=== PATIENT | male | born 1930 | race Caucasian/White ===

== ENCOUNTER 2016-04-23 09:40 | Outpatient (CLI) ==
[2016-04-23 10:49] LABS: PROTHROMBIN TIME 10.1 SEC (9.3-11.0)
== END 2016-04-23 09:41 | disposition home or self-care (01) ==
LOC: LAB 09:40
PROVIDERS: ATTEND Internal Medicine Interventional Cardiology
DX: Z51.81 Encounter for therapeutic drug level monitoring (principal); Z79.01 Long term (current) use of anticoagulants; I48.0 Paroxysmal atrial fibrillation
CPT/HCPCS: 36415; 85610

== ENCOUNTER 2016-05-01 08:01 | Outpatient (CLI) | payer OTHER ==
[2016-05-01 08:46] LABS: PROTHROMBIN TIME 13.6 SEC (9.3-11.0)
== END 2016-05-01 08:02 | disposition home or self-care (01) ==
LOC: LAB 08:01
PROVIDERS: ATTEND Internal Medicine Interventional Cardiology
DX: Z51.81 Encounter for therapeutic drug level monitoring (principal); Z79.01 Long term (current) use of anticoagulants; I48.0 Paroxysmal atrial fibrillation
CPT/HCPCS: 36415; 85610

== ENCOUNTER 2016-05-08 07:54 | Outpatient (CLI) ==
[2016-05-08 08:31] LABS: PROTHROMBIN TIME 18.5 SEC (9.3-11.0)
== END 2016-05-08 07:55 | disposition home or self-care (01) ==
LOC: LAB 07:54
PROVIDERS: ATTEND Internal Medicine Interventional Cardiology
DX: Z51.81 Encounter for therapeutic drug level monitoring (principal); Z79.01 Long term (current) use of anticoagulants; I48.0 Paroxysmal atrial fibrillation
CPT/HCPCS: 36415; 85610

== ENCOUNTER 2016-05-22 08:12 | Outpatient (CLI) | payer OTHER ==
[2016-05-22 09:27] LABS: PROTHROMBIN TIME 22.7 SEC (9.3-11.0)
== END 2016-05-22 08:13 | disposition home or self-care (01) ==
LOC: LAB 08:12
PROVIDERS: ATTEND Internal Medicine Interventional Cardiology
DX: Z51.81 Encounter for therapeutic drug level monitoring (principal); Z79.01 Long term (current) use of anticoagulants; I48.0 Paroxysmal atrial fibrillation
CPT/HCPCS: 36415; 85610

== ENCOUNTER 2016-06-05 08:02 | Outpatient (CLI) ==
[2016-06-05 09:01] LABS: PROTHROMBIN TIME 21.4 SEC (9.3-11.0)
== END 2016-06-05 08:03 | disposition home or self-care (01) ==
LOC: LAB 08:02
PROVIDERS: ATTEND Internal Medicine Interventional Cardiology
DX: Z51.81 Encounter for therapeutic drug level monitoring (principal); Z79.01 Long term (current) use of anticoagulants; I48.0 Paroxysmal atrial fibrillation
CPT/HCPCS: 36415; 85610

== ENCOUNTER 2016-07-06 08:06 | Outpatient (CLI) ==
[2016-07-06 08:42] LABS: PROTHROMBIN TIME 21.7 SEC (9.3-11.0)
== END 2016-07-06 08:07 | disposition home or self-care (01) ==
LOC: LAB 08:06
PROVIDERS: ATTEND Internal Medicine Interventional Cardiology
DX: Z51.81 Encounter for therapeutic drug level monitoring (principal); Z79.01 Long term (current) use of anticoagulants; I48.0 Paroxysmal atrial fibrillation
CPT/HCPCS: 36415; 85610

== ENCOUNTER 2016-07-07 08:54 | Outpatient (CLI) ==
[2016-07-07 09:45] LABS: BILIRUBIN,URINE Negative (NEGATIVE); KETONES,URINE Negative (NEGATIVE); LEUKOCYTE ESTERASE ,URINE Negative (NEGATIVE); NITRITE,URINE Negative (NEGATIVE); PROTEIN,URINE Negative (NEGATIVE); URINE, BLOOD Negative (NEGATIVE)
[2016-07-07 09:47] LABS: BASOPHILS % (AUTO) 0.3 % (0.0-3.0); EOSINOPHILS # (AUTO) 0.1 K/ul (0.0-0.7); EOSINOPHILS % (AUTO) 1.3 % (0.0-7.0); HEMATOCRIT 42.8 % (42.0-52.0); HEMOGLOBIN 14.2 g/dl (14.0-18.0); IMMATURE GRANULOCYTE % (AUTO) 0.3 % (0.0-5.0); LYMPHOCYTES # (AUTO) 1.7 K/uL (0.60-3.4); LYMPHOCYTES % (AUTO) 43.6 (10.0-50.0); MEAN CORPUSCULAR HEMOGLOBIN 30.3 pg (27.0-31.0); MEAN CORPUSCULAR HGB CONC 33.2 (31.8-35.4); MEAN CORPUSCULAR VOLUME 91.5 fl (80.0-94.0); MONOCYTES # (AUTO) 0.3 K/uL (0.4-2.0); MONOCYTES % (AUTO) 8.1 (0-10); NEUTROPHILS # (AUTO) 1.9 K/ul (2.0-6.9); NEUTROPHILS % (AUTO) 46.4; PLATELET COUNT 127 10^3/uL (140-440); RED BLOOD COUNT 4.68 10^6/ul (4.70-6.10); WHITE BLOOD COUNT 3.97 K/ul (4.2-10.2)
[2016-07-07 09:49] LABS: ADD URINE MICROSCOPIC NO
[2016-07-07 09:55] LABS: ALBUMIN 3.7 g/dL (3.4-5.0); ALBUMIN/GLOBULIN RATIO 0.86; ANION GAP 14.3; BILIRUBIN,TOTAL 0.64 mg/dL (0.00-1.20); BUN/CREATININE RATIO 21.89; CALCIUM 9.3 mg/dL (8.2-10.2); CHOL/HDL RATIO 4.6 (4.5-6.4); CREATININE 1.37 mg/dL (0.60-1.10); POTASSIUM 4.3 mmol/L (3.5-5.1)
== END 2016-07-07 08:55 | disposition home or self-care (01) ==
LOC: LAB 08:54
PROVIDERS: ATTEND General Practice
DX: I25.10 Atherosclerotic heart disease of native coronary artery without angina pectoris (principal); E53.8 Deficiency of other specified B group vitamins; E78.5 Hyperlipidemia, unspecified; I10 Essential (primary) hypertension; R53.1 Weakness; R05 Cough; R06.89 Other abnormalities of breathing; Z79.899 Other long term (current) drug therapy
CPT/HCPCS: 36415; 80053; 80061; 81001; 84145; 85025; 86710

== ENCOUNTER 2016-07-07 11:06 | Outpatient (CLI) ==
--- NOTE | 2016-07-07 11:45 | CT ---
EXAM: CT chest without contrast HISTORY: Cough and weakness for 1 week COMPARISON: Chest x-ray 05/27/2007 and 06/21/2006 TECHNIQUE: Serial axial images of the chest were obtained from the lung apices to the upper abdomen without contrast. These were viewed in multiple planes. FINDINGS: The thyroid is normal. The visualized vessels demonstrates scattered atherosclerotic dis ease. The aorta valve is mechanical. There are lead wires with tips terminating in the right atriu m right ventricle. The heart is normal in size without pericardial effusion. There are no patholog ically enlarged mediastinal or hilar lymph nodes. There is no pneumothorax. There is a small left effusion. There is calcified granuloma adjacent to the right major fissure on image 36. There are few calcified pleural plaques bilaterally. There ar e calcified pleural plaques along the left hemidiaphragm. There is no acute consolidation, nodule or mass. The soft tissues in the upper abdomen are unremarkable. There is moderate atherosclerotic disease. IMPRESSION: 1. Small left effusion with left greater than right calcified pleural plaques. 2. No acute consolidation, nodule or mass. 3. 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
== END 2016-07-07 11:07 | disposition home or self-care (01) ==
LOC: RAD 11:06
PROVIDERS: ATTEND General Practice
DX: R53.1 Weakness (principal); R05 Cough; R06.89 Other abnormalities of breathing

== ENCOUNTER 2016-08-03 08:22 | Outpatient (CLI) ==
[2016-08-03 09:02] LABS: PROTHROMBIN TIME 19.4 SEC (9.3-11.0)
== END 2016-08-03 08:23 | disposition home or self-care (01) ==
LOC: LAB 08:22
PROVIDERS: ATTEND Internal Medicine Interventional Cardiology
DX: Z51.81 Encounter for therapeutic drug level monitoring (principal); Z79.01 Long term (current) use of anticoagulants; I48.0 Paroxysmal atrial fibrillation
CPT/HCPCS: 36415; 85610

== ENCOUNTER 2016-08-17 08:16 | Outpatient (CLI) | END 2016-08-17 08:17 | disposition home or self-care (01) | LOC: LAB 08:16 | PROVIDERS: ATTEND Internal Medicine Interventional Cardiology | DX: Z51.81 Encounter for therapeutic drug level monitoring (principal); Z79.01 Long term (current) use of anticoagulants; I48.0 Paroxysmal atrial fibrillation | CPT/HCPCS: 36415; 85610 ==

== ENCOUNTER 2016-09-07 08:13 | Outpatient (CLI) ==
[2016-09-07 08:43] LABS: PROTHROMBIN TIME 29.3 SEC (9.3-11.0)
== END 2016-09-07 08:14 ==
LOC: LAB 08:13
PROVIDERS: ATTEND Internal Medicine Interventional Cardiology
DX: I48.0 Paroxysmal atrial fibrillation (principal); Z51.81 Encounter for therapeutic drug level monitoring; Z79.01 Long term (current) use of anticoagulants
CPT/HCPCS: 36415; 85610

== ENCOUNTER 2016-09-21 08:01 | Outpatient (CLI) ==
[2016-09-21 09:09] LABS: PROTHROMBIN TIME 28.7 SEC (9.3-11.0)
== END 2016-09-21 08:02 | disposition home or self-care (01) ==
LOC: LAB 08:01
PROVIDERS: ATTEND Internal Medicine Interventional Cardiology
DX: Z51.81 Encounter for therapeutic drug level monitoring (principal); Z79.01 Long term (current) use of anticoagulants; I48.0 Paroxysmal atrial fibrillation
CPT/HCPCS: 36415; 85610

== ENCOUNTER 2016-10-19 08:22 | Outpatient (CLI) | END 2016-10-19 08:23 | disposition home or self-care (01) | LOC: LAB 08:22 | PROVIDERS: ATTEND Internal Medicine Interventional Cardiology | DX: Z51.81 Encounter for therapeutic drug level monitoring (principal); Z79.01 Long term (current) use of anticoagulants; I48.0 Paroxysmal atrial fibrillation | CPT/HCPCS: 36415; 85610 ==

== ENCOUNTER 2016-11-17 08:21 | Outpatient (CLI) ==
[2016-11-17 10:56] LABS: PROTHROMBIN TIME 33.4 SEC (9.3-11.0)
== END 2016-11-17 08:22 | disposition home or self-care (01) ==
LOC: LAB 08:21
PROVIDERS: ATTEND Internal Medicine Interventional Cardiology
DX: Z51.81 Encounter for therapeutic drug level monitoring (principal); Z79.01 Long term (current) use of anticoagulants; I48.0 Paroxysmal atrial fibrillation
CPT/HCPCS: 36415; 85610

== ENCOUNTER 2016-11-24 08:12 | Outpatient (CLI) ==
[2016-11-24 09:13] LABS: PROTHROMBIN TIME 36.3 SEC (9.3-11.0)
== END 2016-11-24 08:13 | disposition home or self-care (01) ==
LOC: LAB 08:12
PROVIDERS: ATTEND Internal Medicine Interventional Cardiology
DX: Z51.81 Encounter for therapeutic drug level monitoring (principal); Z79.01 Long term (current) use of anticoagulants; I48.0 Paroxysmal atrial fibrillation
CPT/HCPCS: 36415; 85610

== ENCOUNTER 2016-11-30 08:06 | Outpatient (CLI) ==
[2016-11-30 09:09] LABS: PROTHROMBIN TIME 25.7 SEC (9.3-11.0)
== END 2016-11-30 08:07 | disposition home or self-care (01) ==
LOC: LAB 08:06
PROVIDERS: ATTEND Internal Medicine Interventional Cardiology
DX: Z51.81 Encounter for therapeutic drug level monitoring (principal); Z79.01 Long term (current) use of anticoagulants; I48.0 Paroxysmal atrial fibrillation
CPT/HCPCS: 36415; 85610

== ENCOUNTER 2016-12-21 08:01 | Outpatient (CLI) ==
[2016-12-21 08:41] LABS: PROTHROMBIN TIME 29.2 SEC (9.3-11.0)
== END 2016-12-21 08:02 | disposition home or self-care (01) ==
LOC: LAB 08:01
PROVIDERS: ATTEND Internal Medicine Interventional Cardiology
DX: Z51.81 Encounter for therapeutic drug level monitoring (principal); Z79.01 Long term (current) use of anticoagulants; I48.0 Paroxysmal atrial fibrillation
CPT/HCPCS: 36415; 85610

== ENCOUNTER 2017-01-13 07:09 | Outpatient (CLI) | payer OTHER ==
[2017-01-13 07:33] LABS: BASOPHILS % (AUTO) 0.3 % (0.0-3.0); EOSINOPHILS # (AUTO) 0.2 K/ul (0.0-0.7); EOSINOPHILS % (AUTO) 2.7 % (0.0-7.0); HEMATOCRIT 34.6 % (42.0-52.0); HEMOGLOBIN 11.2 g/dl (14.0-18.0); IMMATURE GRANULOCYTE % (AUTO) 0.4 % (0.0-5.0); LYMPHOCYTES # (AUTO) 1.3 K/uL (0.60-3.4); LYMPHOCYTES % (AUTO) 18.2 (10.0-50.0); MEAN CORPUSCULAR HEMOGLOBIN 28.1 pg (27.0-31.0); MEAN CORPUSCULAR HGB CONC 32.4 (31.8-35.4); MEAN CORPUSCULAR VOLUME 86.9 fl (80.0-94.0); MONOCYTES # (AUTO) 0.6 K/uL (0.4-2.0); MONOCYTES % (AUTO) 8.5 (0-10); NEUTROPHILS # (AUTO) 5.1 K/ul (2.0-6.9); NEUTROPHILS % (AUTO) 69.9; PLATELET COUNT 194 10^3/uL (140-440); RED BLOOD COUNT 3.98 10^6/ul (4.70-6.10); WHITE BLOOD COUNT 7.32 K/ul (4.2-10.2)
[2017-01-13 07:40] LABS: ADD URINE MICROSCOPIC NO; BILIRUBIN,URINE Negative (NEGATIVE); KETONES,URINE Negative (NEGATIVE); LEUKOCYTE ESTERASE ,URINE Negative (NEGATIVE); NITRITE,URINE Negative (NEGATIVE); PROTEIN,URINE Negative (NEGATIVE); URINE, BLOOD Negative (NEGATIVE)
[2017-01-13 08:08] LABS: ALBUMIN 2.8 g/dL (3.4-5.0); ALBUMIN/GLOBULIN RATIO 0.67; ANION GAP 16.3; BILIRUBIN,TOTAL 0.9 mg/dL (0.00-1.20); BUN/CREATININE RATIO 17.64; CALCIUM 9.8 mg/dL (8.2-10.2); CHOL/HDL RATIO 3.6 (4.5-6.4); CREATININE 1.02 mg/dL (0.60-1.10); POTASSIUM 4.3 mmol/L (3.5-5.1)
== END 2017-01-13 07:10 | disposition home or self-care (01) ==
LOC: LAB 07:09
PROVIDERS: ATTEND Internal Medicine Interventional Cardiology
DX: Z51.81 Encounter for therapeutic drug level monitoring (principal); Z79.01 Long term (current) use of anticoagulants; I48.0 Paroxysmal atrial fibrillation; I49.9 Cardiac arrhythmia, unspecified; I10 Essential (primary) hypertension; E53.8 Deficiency of other specified B group vitamins; I25.10 Atherosclerotic heart disease of native coronary artery without angina pectoris; E78.5 Hyperlipidemia, unspecified; Z12.5 Encounter for screening for malignant neoplasm of prostate; Z79.899 Other long term (current) drug therapy
CPT/HCPCS: 36415; 80053; 80061; 81001; 85025; 85610; 93005; 93010

== ENCOUNTER 2017-02-23 08:02 | Outpatient (CLI) ==
[2017-02-23 09:13] LABS: PROTHROMBIN TIME 32.5 SEC (9.3-11.0)
== END 2017-02-23 08:03 | disposition home or self-care (01) ==
LOC: LAB 08:02
PROVIDERS: ATTEND Internal Medicine Interventional Cardiology
DX: Z51.81 Encounter for therapeutic drug level monitoring (principal); Z79.01 Long term (current) use of anticoagulants; I48.91 Unspecified atrial fibrillation
CPT/HCPCS: 36415; 85610

== ENCOUNTER 2017-03-11 08:03 | Outpatient (CLI) ==
[2017-03-11 09:15] LABS: PROTHROMBIN TIME 34.4 SEC (9.3-11.0)
== END 2017-03-11 08:04 | disposition home or self-care (01) ==
LOC: LAB 08:03
PROVIDERS: ATTEND Internal Medicine Interventional Cardiology
DX: Z51.81 Encounter for therapeutic drug level monitoring (principal); Z79.01 Long term (current) use of anticoagulants; I48.91 Unspecified atrial fibrillation
CPT/HCPCS: 36415; 85610

== ENCOUNTER 2017-04-12 16:26 | Outpatient (CLI) | END 2017-04-12 16:27 | disposition home or self-care (01) | LOC: LAB 16:26 | PROVIDERS: ATTEND General Practice | DX: D50.9 Iron deficiency anemia, unspecified (principal); E53.8 Deficiency of other specified B group vitamins; I10 Essential (primary) hypertension | CPT/HCPCS: 36415; 82272; 85025 ==

== ENCOUNTER 2017-04-12 16:52 | Outpatient (CLI) ==
--- NOTE | 2017-04-12 17:25 | CT ---
EXAM: CT scan of the abdomen and pelvis without contrast HISTORY: Weight loss TECHNIQUE: Imaging of the abdomen pelvis was performed without contrast. 5 mm thin axial images and coronal and sagittal reconstructions were provided for interpretation. Comparison CT scan of the chest dated 07/07/2016. FINDINGS: The liver, spleen, pancreas, adrenal glands and kidneys appear normal. The proximal urete rs are normal size. The small and large bowel loops are normal caliber. There is no free air. No a cute abnormalities are seen within the anterior abdominal wall. The appendix appears normal. The helical images obtained through the pelvis demonstrate a normal appearance of the rectum, urinary bladder. There is no free fluid seen within the pelvis. There is diffuse diverticular disease of t he sigmoid colon and descending colon without acute inflammation. There is a small left pleural effu cory. Pleural calcifications are again seen bilaterally. There is a questionable nodular focus seen along the posterior pleura of the left hemidiaphragm seen on axial image number 14. Findings measure approximately 1.7 cm maximum. No lytic or blastic lesions are seen within the osseous structures. IMPRESSION: There is no bowel obstruction or acute inflammatory change seen within the abdomen and p shellie. Calcified pleural plaques are again seen. There is a questionable new focus of soft tissue nodule s een along the posterior pleura of the left hemidiaphragm. A focus of tumor and malignancy cannot be e xcluded. CT scan of the chest with contrast can be obtained for further evaluation. Stable small left pleural effusion. Diverticular disease of the descending and sigmoid colon without acute inflammation.
== END 2017-04-12 16:53 | disposition home or self-care (01) ==
LOC: RAD 16:52
PROVIDERS: ATTEND General Practice
DX: R63.4 Abnormal weight loss (principal)

== ENCOUNTER 2017-04-19 07:07 | Outpatient (CLI) | END 2017-04-19 07:08 | disposition home or self-care (01) | LOC: LAB 07:07 | PROVIDERS: ATTEND Internal Medicine Interventional Cardiology | DX: R77.0 Abnormality of albumin (principal); R63.4 Abnormal weight loss; I10 Essential (primary) hypertension; E78.5 Hyperlipidemia, unspecified; I49.9 Cardiac arrhythmia, unspecified; I25.10 Atherosclerotic heart disease of native coronary artery without angina pectoris; I48.91 Unspecified atrial fibrillation; D49.1 Neoplasm of unspecified behavior of respiratory system; Z79.899 Other long term (current) drug therapy; Z51.81 Encounter for therapeutic drug level monitoring; Z79.01 Long term (current) use of anticoagulants | CPT/HCPCS: 36415; 80053; 81001; 82378; 84439; 84443; 85025; 85610 ==

== ENCOUNTER 2017-04-20 09:45 | Outpatient (CLI) ==
--- NOTE | 2017-04-20 10:44 | CT ---
EXAM: CT of the chest with and without contrast History: Cough. Comparison: Chest CT 07/07/2016 Technique: Multiplanar CT images through the thorax were obtained with and without the administratio n of IV contrast Findings: Heart size is upper limits of normal. Coronary calcifications. The aortic valve replacem ent. No axillary adenopathy. No pathologically enlarged mediastinal or hilar lymph nodes. Atherosc lerotic vascular calcifications of the thoracic aorta. No thoracic aortic aneurysm. No consolidated pneumonia. No pneumothorax. No lung masses or lung nodules. Slight interval increa se in size of the small left pleural effusion. There is a new trace right pleural effusion. No hopson ge in the calcified bilateral pleural plaques. Within the visualized upper abdomen, no acute findings. Colonic diverticulosis. No acute osseous ab normalities. Sternotomy wires. Degenerative changes of the spine. Impression: 1. Slight interval increase in size of the small left pleural effusion. 2. There is a new trace right pleural effusion. 3. No evidence for pneumonia and no lymphadenopathy. No lung masses or lung nodules. 4. No change in the bilateral calcified pleural plaques.
== END 2017-04-20 09:46 ==
LOC: RAD 09:45
PROVIDERS: ATTEND General Practice
DX: D49.1 Neoplasm of unspecified behavior of respiratory system (principal)

== ENCOUNTER 2017-05-19 07:41 | Outpatient (CLI) | payer OTHER | END 2017-05-19 07:42 | disposition home or self-care (01) | LOC: LAB 07:41 | PROVIDERS: ATTEND Internal Medicine Interventional Cardiology | DX: I48.91 Unspecified atrial fibrillation (principal); Z51.81 Encounter for therapeutic drug level monitoring; Z79.01 Long term (current) use of anticoagulants | CPT/HCPCS: 36415; 85610 ==

== ENCOUNTER 2017-06-16 07:16 | Outpatient (CLI) | payer OTHER | END 2017-06-16 07:17 | disposition home or self-care (01) | LOC: LAB 07:16 | PROVIDERS: ATTEND Internal Medicine Interventional Cardiology | DX: Z51.81 Encounter for therapeutic drug level monitoring (principal); Z79.01 Long term (current) use of anticoagulants; I48.91 Unspecified atrial fibrillation | CPT/HCPCS: 36415; 85610 ==

== ENCOUNTER 2017-06-30 07:06 | Outpatient (CLI) | END 2017-06-30 07:07 | disposition home or self-care (01) | LOC: LAB 07:06 | PROVIDERS: ATTEND Internal Medicine Interventional Cardiology | DX: Z51.81 Encounter for therapeutic drug level monitoring (principal); Z79.01 Long term (current) use of anticoagulants; I48.91 Unspecified atrial fibrillation | CPT/HCPCS: 36415; 85610 ==

== ENCOUNTER 2017-07-14 07:01 | Outpatient (CLI) | payer OTHER | END 2017-07-14 07:02 | disposition home or self-care (01) | LOC: LAB 07:01 | PROVIDERS: ATTEND Internal Medicine Interventional Cardiology | DX: I48.91 Unspecified atrial fibrillation (principal) | CPT/HCPCS: 36415; 85610 ==

== ENCOUNTER 2017-08-04 06:58 | Outpatient (CLI) | payer OTHER | END 2017-08-04 06:59 | disposition home or self-care (01) | LOC: LAB 06:58 | PROVIDERS: ATTEND Internal Medicine Interventional Cardiology | DX: Z51.81 Encounter for therapeutic drug level monitoring (principal); Z79.01 Long term (current) use of anticoagulants; I48.91 Unspecified atrial fibrillation | CPT/HCPCS: 36415; 85610 ==

== ENCOUNTER 2017-08-06 07:01 | Outpatient (CLI) | payer OTHER | END 2017-08-06 07:02 | disposition home or self-care (01) | LOC: LAB 07:01 | PROVIDERS: ATTEND Internal Medicine Interventional Cardiology | DX: I48.91 Unspecified atrial fibrillation (principal) | CPT/HCPCS: 36415; 85610 ==

== ENCOUNTER 2017-08-12 11:51 | Outpatient (CLI) | END 2017-08-12 11:52 | disposition home or self-care (01) | LOC: FCC-LAB 11:51 | PROVIDERS: ATTEND General Practice | DX: E78.5 Hyperlipidemia, unspecified (principal); I25.10 Atherosclerotic heart disease of native coronary artery without angina pectoris; I10 Essential (primary) hypertension; I49.9 Cardiac arrhythmia, unspecified; Z79.899 Other long term (current) drug therapy | CPT/HCPCS: 36415; 80053; 80061; 81001; 85025 ==

== ENCOUNTER 2017-08-13 11:44 | Outpatient (CLI) | END 2017-08-13 11:45 | disposition left against medical advice (07) | LOC: AMBL 11:44 | PROVIDERS: ATTEND Internal Medicine | DX: R41.0 Disorientation, unspecified (principal); M25.521 Pain in right elbow; S51.801A Unspecified open wound of right forearm, initial encounter; R29.6 Repeated falls; F03.90 Unspecified dementia, unspecified severity, without behavioral disturbance, psychotic disturbance, mood disturbance, and anxiety; W19.XXXA Unspecified fall, initial encounter ==

== ENCOUNTER 2017-08-17 11:46 | Outpatient (CLI) | payer OTHER ==
--- NOTE | 2017-08-17 16:04 | DI ---
EXAM: Radiographs, right knee HISTORY: Initial presentation for right knee trauma. COMPARISON: None available. TECHNIQUE: Four views. FINDINGS: Bone mineralization is decreased. No fracture or dislocation identified. Moderate medial and patellofemoral compartment joint space narrowing noted. Tricompartmental marginal osteophyte fo rmation present. No erosions are seen. Small superior patellar enthesophyte noted. Prepatellar sof t tissue swelling noted. Atherosclerotic calcifications are present. IMPRESSION: No fracture or dislocation.
== END 2017-08-17 11:47 | disposition home or self-care (01) ==
LOC: RAD 11:46 → FCC-LAB 11:47
PROVIDERS: ATTEND General Practice
DX: R15.9 Full incontinence of feces (principal); R19.5 Other fecal abnormalities; S89.91XA Unspecified injury of right lower leg, initial encounter; S80.01XA Contusion of right knee, initial encounter; M25.561 Pain in right knee; M25.461 Effusion, right knee
CPT/HCPCS: 82272

== ENCOUNTER 2017-08-18 13:16 | Outpatient (CLI) | payer OTHER ==
--- NOTE | 2017-08-18 15:44 | US ---
EXAM: Ultrasound venous Doppler right lower extermity HISTORY: Other specified soft tissue disorders COMPARISON: None TECHNIQUE: Venous duplex ultrasound of the right lower extremity was performed using color, daly-sca le, and Doppler flow imaging. FINDINGS: There is normal color flow and compression of the right common femoral, greater saphenous, profunda femoral, femoral, popliteal, peroneal, posterior tibial, and anterior tibial veins without evidence of intraluminal thrombus. IMPRESSION: No right lower extremity deep venous thrombosis.
--- NOTE | 2017-08-18 15:52 | US ---
Exam: Ritchie-scale and color ultrasonographic evaluation of the carotid arteries. Comparison: None available. Reason for exam: Weakness with balance tissues. Findings: There is a moderate amount of atheromatous plaque seen in the right internal carotid artery The right ECA measures 0.9 meters per second Right CCA measures 1.0 / 0.2 meters per second. The right internal carotid artery peak systolic velocity measures 1.9 meters per second The right internal carotid artery/CCA PSV ratio measures 1.9. The right internal carotid artery end-diastolic velocity measures 0.3 There is normal antegrade right vertebral artery flow. There is a moderate amount of atheromatous plaque seen in the left internal carotid artery Left ECA measures 0.8 meters per second Left CCA measures 0.9 / 0.1 meters per second. Left internal carotid artery peak systolic velocity measures 1.9 Left internal carotid artery/CCA PSV ratio measures 2.1 Left internal carotid artery end-diastolic velocity measures 0.3 meters per second There is normal antegrade left vertebral artery flow. Impression: 1. Moderate of (50 - 69%) stenotic disease is seen in the right and left internal carotid arteries by peak systolic velocity measurements. 2. There is normal antegrade vertebral artery flow was seen bilaterally
== END 2017-08-18 13:17 | disposition home or self-care (01) ==
LOC: RAD 13:16
PROVIDERS: ATTEND General Practice
DX: R09.89 Other specified symptoms and signs involving the circulatory and respiratory systems (principal); M79.89 Other specified soft tissue disorders

== ENCOUNTER 2017-09-16 08:00 | Outpatient (CLI) | payer OTHER | END 2017-09-16 08:01 | disposition home or self-care (01) | LOC: LAB 08:00 | PROVIDERS: ATTEND Internal Medicine Interventional Cardiology | DX: Z51.81 Encounter for therapeutic drug level monitoring (principal); Z79.01 Long term (current) use of anticoagulants; I48.91 Unspecified atrial fibrillation | CPT/HCPCS: 36415; 85610 ==

== ENCOUNTER 2017-09-24 07:20 | Outpatient (CLI) | payer OTHER | END 2017-09-24 07:21 | disposition home or self-care (01) | LOC: LAB 07:20 | PROVIDERS: ATTEND Internal Medicine Interventional Cardiology | DX: I48.91 Unspecified atrial fibrillation (principal); Z51.81 Encounter for therapeutic drug level monitoring; Z79.01 Long term (current) use of anticoagulants | CPT/HCPCS: 36415; 85610 ==

== ENCOUNTER 2017-10-08 08:07 | Outpatient (CLI) | payer OTHER | END 2017-10-08 08:08 | disposition home or self-care (01) | LOC: LAB 08:07 | PROVIDERS: ATTEND Internal Medicine Interventional Cardiology | DX: Z51.81 Encounter for therapeutic drug level monitoring (principal); Z79.01 Long term (current) use of anticoagulants; I48.91 Unspecified atrial fibrillation | CPT/HCPCS: 36415; 85610 ==

== ENCOUNTER 2017-11-05 08:14 | Outpatient (CLI) | END 2017-11-05 08:15 | disposition home or self-care (01) | LOC: LAB 08:14 | PROVIDERS: ATTEND Internal Medicine Interventional Cardiology | DX: Z51.81 Encounter for therapeutic drug level monitoring (principal); Z79.01 Long term (current) use of anticoagulants; I48.91 Unspecified atrial fibrillation | CPT/HCPCS: 36415; 85610 ==

== ENCOUNTER 2017-12-03 08:12 | Outpatient (CLI) | END 2017-12-03 08:13 | disposition home or self-care (01) | LOC: LAB 08:12 | PROVIDERS: ATTEND Internal Medicine Interventional Cardiology | DX: Z51.81 Encounter for therapeutic drug level monitoring (principal); Z79.01 Long term (current) use of anticoagulants; I48.91 Unspecified atrial fibrillation | CPT/HCPCS: 36415; 85610 ==

== ENCOUNTER 2017-12-06 08:15 | Outpatient (CLI) | END 2017-12-06 08:16 | disposition home or self-care (01) | LOC: LAB 08:15 | PROVIDERS: ATTEND Internal Medicine Interventional Cardiology | DX: Z51.81 Encounter for therapeutic drug level monitoring (principal); Z79.01 Long term (current) use of anticoagulants; I48.91 Unspecified atrial fibrillation | CPT/HCPCS: 36415; 85610 ==

== ENCOUNTER 2018-03-19 13:59 | Outpatient (CLI) | payer OTHER ==
[2018-03-11 16:19] VITALS: BMI 23.7
== END 2018-03-19 14:07 ==
LOC: AMBL 13:59
PROVIDERS: ATTEND Internal Medicine Geriatric Medicine
DX: I50.9 Heart failure, unspecified (principal); Z99.81 Dependence on supplemental oxygen; F02.80 Dementia in other diseases classified elsewhere, unspecified severity, without behavioral disturbance, psychotic disturbance, mood disturbance, and anxiety

== ENCOUNTER 2018-03-21 14:22 | Outpatient (CLI) ==
[2018-03-11 16:19] VITALS: BMI 23.7
== END 2018-03-21 14:29 | disposition hospice, home (50) ==
LOC: AMBL 14:22
PROVIDERS: ATTEND Internal Medicine
DX: Z99.81 Dependence on supplemental oxygen (principal)

== ENCOUNTER 2018-03-24 08:10 | Emergency (ER) ==
[2018-03-24] MEDS ORDERED: LIDOCAINE HCL 1% ABBOJECT IVP PRN (08:11)
[2018-03-24] MEDS: EPINEPHRINE 1 MG/10 ML SYRINGE IV PRN ×2 (08:12→08:14)
[2018-03-24 08:25] VITALS: TEMP 93; BMI 26.8
[2018-03-24 08:42] VITALS: BP 00/00
--- NOTE | 2018-03-24 08:44 | ED.PDOC ---
General ED Provider: Dr. BRENNA LOVE Chief Complaint: Cardiac Arrest Stated Complaint: cardiac arrest Time Seen by Physician: 08:00 (arrived intubated no pulse ) Mode of Arrival: Stretcher Information Source: Patient Exam Limitations: Clinical condition [facility] and Triage Documentation Reviewed and Agree: Yes Does patient meet sepsis criteria?: Yes If yes, has appropriate treatment been initiated?: No System Inflammatory Response Syndrome: Not Applicable Sepsis Protocol: For patient's 13 years and over: Temp is 96.8 and below OR 101 and greater Pulse >90 BPM Resp >20/minute Acutely Altered Mental Status Are patient's symptoms suggestive of a new infection, such as: -Pneumonia -Skin, Soft Tissue -Endocarditis -UTI -Bone, Joint Infection -Implantable Device -Acute Abdominal Infection -Wound Infection -Meningitis -Blood Stream Catheter Infection -Unknown Cardiac Resuscitation - Cardiac Resuscitation/Physical Exam Witnessed Arrest: No (pt was in hospice ) Down-time Before BLS Initiated: had a heart rate p.t.a lost it on arrival Down-time Before ALS Initiated: 10 min Airway Prehospital Findings: Reports: Patent Breathing Prehospital Findings: Reports: Apnea Circulation/Rhythm Prehospital Findings: Reports: Asystole, V-Fib Disability/Neurological Prehospital Findings: Reports: Unresponsive Breathing Prehospital Intervention: Reports: Intubation Circulation/Rhythm Prehospital Intervention: Reports: Chest compressions, Defibrillated, IV/IO placed (i/o left lower leg), Epinephrine Airway Prehospital Response: pt p.t.a had been breathing 4 breath per min arrived intubated by ems Breathing Prehospital Response: Present: Equal breath sounds Circulation/Rhythm Prehospital Response: Present: Asystole, V-Fib Airway ED Findings: Patent Breathing ED Findings: Present: Lung sounds clear Circulation/Rhythm ED Findings: Present: Asystole, V-Fib Disability/Neurological ED Findings: Present: Unresponsive Breathing ED Intervention: Intubated by Other (ems ) Circulation/Rhythm ED Intervention: Defibrillated, IV/IO placed, Epinephrine, Lidocaine (1 amp lidocane give push) Breathing ED Response: ETT in airway, Equal breath sounds, Confirmed by auscultation, Confirmed by CO2 detector Circulation/Rhythm ED Response: Present: Pulses absent, Asystole, V-Fib Right Pupil: Dilated Left Pupil: Dilated Review Of Systems: Unable due to extremis EMS/Code Sheet Reviewed: Yes Patient is a DNR: Yes (noted after family arrived ) Resuscitation Successful: No Terminated At: 8:15 Preliminary Cause of : cardia arrest Differential Diagnoses: Acute ID, Respiratory Failure, Sudden Past Medical History - Past Medical History Previously Healthy: No Endocrine: Reports: Unknown Cardiovascular: Reports: Unknown Respiratory: Reports: Unknown Hematological: Reports: Unknown Gastrointestinal: Reports: Unknown Genitourinary: Reports: Unknown Neuro/Psych: Reports: Unknown Musculoskeletal: Reports: Unknown Cancer: Reports: Unknown - Surgical History General Surgical History: Reports: Unknown - Family History Family History: Reports: Unknown - Social History Smoking Status: Former smoker Hx Substance Use: No Interpretation - Radiology Interpretation Radiology Interpretation By: Radiologist Critical Care Note - Critical Care Note Total Time (mins): 15 Course - Course Hematology/Chemistry: 03/24/18 08:15 Orders, Labs, Meds: Lab Review 03/24/18 08:15 WBC 3.54 L RBC 3.51 L Hgb 9.0 L Hct 31.8 L MCV 90.6 MCH 25.6 L MCHC 28.3 L RDW Coeff of Fernando 20.0 H Plt Count 165 Immature Gran % (Auto) 0.6 Neut % (Auto) 70.9 Lymph % (Auto) 20.6 [place] % (Auto) 7.9 Eos % (Auto) 0.0 Baso % (Auto) 0.0 Immature Gran # (Auto) 0.0 Neut # (Auto) 2.5 Lymph # (Auto) 0.7 [place] # (Auto) 0.3 L Eos # (Auto) 0.0 Baso # (Auto) 0.0 Hypochromasia 2+ Poikilocytosis 2+ Anisocytosis Not present Acanthocytes (Spur) 1+ Orders Category Date Time Status CBC W/ AUTO DIFF Stat LAB 03/24/18 08:15 Completed COMPREHENSIVE METABOLIC PANEL Stat LAB 03/24/18 08:15 Received CREATINE KINASE Stat LAB 03/24/18 08:15 Received PROCALCITONIN Stat LAB 03/24/18 08:15 Received RBC MORPHOLOGY Stat LAB 03/24/18 08:15 Completed TROPONIN I Stat LAB 03/24/18 08:15 Received CHEST, 1V AP ONLY Stat RADS 03/24/18 08:33 Ordered Vital Signs: Temp Pulse Resp BP Pulse Ox 03/24/18 08:34 0 L 0 L 00/00 L 03/24/18 08:12 93 F L 0 L 0 L 0/0 L 0 L Departure - Departure Time of Disposition: 08:48 Disposition: Discharge Problem: Cardiac arrest Condition: Pt referred to PMD for follow-up: No IPMP verified?: No Allergies/Adverse Reactions: Allergies No Known Allergies Allergy (Unverified 04/19/17 09:21) Home Medications: Ambulatory Orders Lisinopril [Zestril] 5 mg PO BID 03/07/18 Sotalol HCl [Betapace] 40 mg PO BID 03/07/18 Warfarin Sodium [Coumadin] 1 mg PO BEDTIME 03/07/18 Cyanocobalamin (Vitamin B-12) [Vitamin B-12] 1,000 mcg IM DAILY #30 vial Iron,Carbonyl [Feosol] 45 mg PO DAILY #30 tablet 03/19/18 Sacubitril/Valsartan [Entresto 24 mg-26 mg Tablet] 1 each PO BID #30 tablet 07/31 Vitamin B-1 Inj [Thiamine] 50 mg IM DAILY #30 vial 03/19/18 Disposition Discussed With: Patient
--- NOTE | 2018-03-24 08:51 | DI ---
EXAM: Single view of the chest. History: Endotracheal tube placement. Comparison: Chest radiograph 03/18/2018 Findings: Heart size is stable. Artificial heart valve. Improving bilateral pleural effusions. En dotracheal tube tip is 2 cm above the pura. No pneumothorax. Elevated left hemidiaphragm. No acu te osseous abnormalities. Air distended stomach. Impression: 1. Endotracheal tube tip is 2 cm above the pura. No pneumothorax. 2. Improving bilateral pleural effusions
== END 2018-03-24 08:15 | disposition expired ==
LOC: ED 08:10
DX: I46.9 Cardiac arrest, cause unspecified (principal); R09.2 Respiratory arrest
CPT/HCPCS: 36415; 80053; 82550; 82553; 84145; 84484; 85008; 85025; 96374; 96375; 99285; 99291